=== PATIENT | female | born 1940 | race African-American/Black ===

== ENCOUNTER → 2017-01-02 | Outpatient (CLI) | payer OTHER ==
[~2017-01-02] MED LIST: ANTIVERT PO; ASPIRINEC PO; GLYBURIDE PO; METFORMIN PO; NAPROXEN PO
--- NOTE | ~2017-01-02 | MY29 ---
[facility] A Service [facility] RADIOLOGY TEXT RESULTS PATIENT: MARY ANN LANDEROS LOCATION: [facility] : 36 UNIT #: [id number] AGE: [address]: Ginna Johns MD SEX: F ORDER DR: [id number] [facility] [address] [place], [place] [address] [id number] O MR#: [id number] Acc #: [id number] NAME: MARY ANN LANDEROS : 1940 SEX: F STUDY DATE/TIME: 01/02/2017 10:19 UNIT: [facility] ROOM: STUDY DESCRIPTION: MY JOSE JUAN SCREENING W/ CAD BILAT Attending Physician: Ginna Johns M.D. Ordering Physician: Ginna Johns M.D. Primary Care Physician: Ginna Johns M.D. MEDICAL IMAGING REPORT This report is preliminary unless electronic signature is present EXAM Digital screening mammogram, 01/02/2017; [facility]. HISTORY 76-year-old woman positive family history, sister age 62. Annual screen. COMPARISON Outside mammograms now available dates 10/11/2013, 11/18/2014, 11/23/2015. FINDINGS Digital imaging of each breast was completed utilizing a two-view examination of each breast in craniocaudal and mediolateral-oblique projections. Review and interpretation of digital mammograms include a second review in conjunction with FDA-approved CAD device. There is a normal parenchymal presentation bilaterally consistent with the patient's age. There are no breast masses imaged and no parenchymal asymmetry is visualized. There are no suspicious microcalcifications and I see no focal architectural disturbance. IMPRESSION Negative screening digital mammogram. One-year followup recommended. Patients over the age of 40 are entered into a reminder system with target due date for the next mammogram. A result letter will also be sent to the patient. BIRADS: 1 Negative. ADDENDUM Breast parenchyma is predominately fatty replaced. Dictated by... [facility] A Service [facility] RADIOLOGY TEXT RESULTS PATIENT: MARY ANN LANDEROS LOCATION: [facility] : 36 UNIT #: [id number] AGE: [address]: Ginna Johns MD SEX: F ORDER DR: Jose C Archibald M.D. THIS IS AN ELECTRONICALLY VERIFIED REPORT Jose C Archibald M.D. at 01/09/2017 8:06 AM MERRILL/sofia TD: 01/08/2017 22:29 JOB #: [id number] MEDICAL IMAGING REPORT Page 1 of 1 COPY
== END | disposition home or self-care (01) ==
LOC: CWCC 09:45
DX: Z12.31 Encounter for screening mammogram for malignant neoplasm of breast (principal)
CPT/HCPCS: G0202